=== PATIENT | female | born 2000 | race Caucasian/White ===

== ENCOUNTER 2019-07-31 17:19 | Emergency (ER) | payer OTHER ==
[~2019-07-31] VITALS: Ht 147.3 cm; Wt 43.0 kg
[2019-07-31 17:35] VITALS: BP 110/75
[2019-07-31] MEDS ORDERED: ketorolac tromethamine 15mg/ml inj. IM ONE (18:00)
[2019-07-31] MEDS ORDERED: triamcinolone acetonide 40mg/ml inj IM ONE (18:00)
== END 2019-07-31 18:27 | disposition home or self-care (01) ==
LOC: ER 17:20
DX: M54.5 Low back pain (principal); G89.29 Other chronic pain; V49.9XXA Car occupant (driver) (passenger) injured in unspecified traffic accident, initial encounter; Y93.89 Activity, other specified; Y92.89 Other specified places as the place of occurrence of the external cause; Y99.8 Other external cause status
CPT/HCPCS: 96372; 99284; J1885; J3301

== ENCOUNTER 2019-08-15 23:56 | Emergency (ER) | payer OTHER ==
[~2019-08-15] VITALS: Ht 147.3 cm; Wt 44.0 kg
[2019-08-16] MEDS ORDERED: diazepam 5mg tablet PO ONE (00:15)
[2019-08-16] MEDS ORDERED: oxyCODONE/APAP 5-325mg tablet PO ONE (00:15)
[2019-08-16] MEDS ORDERED: ketorolac trometh. 30mg/ml inj. IM ONE (00:15)
[2019-08-16] MEDS ORDERED: HYDR-3965 PO (01:00)
[2019-08-16 01:21] VITALS: BP 133/82
== END 2019-08-16 01:24 | disposition home or self-care (01) ==
LOC: ER 23:57
DX: M54.5 Low back pain (principal); M25.552 Pain in left hip; M79.605 Pain in left leg; G89.29 Other chronic pain; F17.210 Nicotine dependence, cigarettes, uncomplicated; Z79.899 Other long term (current) drug therapy
CPT/HCPCS: 96372; 99283; J1885

== ENCOUNTER 2021-01-26 17:06 | Emergency (ER) | payer MEDICAID ==
[~2021-01-26] VITALS: Ht 149.9 cm; Wt 43.2 kg
[2021-01-26 17:29] VITALS: BP 114/61
== END 2021-01-26 19:01 | disposition left against medical advice (07) ==
LOC: ER 17:07
DX: S91.312A Laceration without foreign body, left foot, initial encounter (principal); Z53.21 Procedure and treatment not carried out due to patient leaving prior to being seen by health care provider; X58.XXXA Exposure to other specified factors, initial encounter; Y93.89 Activity, other specified; Y92.89 Other specified places as the place of occurrence of the external cause; Y99.8 Other external cause status

== ENCOUNTER 2022-04-04 10:24 | Emergency (ER) | payer MEDICAID ==
[~2022-04-04] VITALS: Ht 147.3 cm; Wt 41.3 kg
[2022-04-04 11:43] VITALS: BP 104/57
[2022-04-04 12:32] LABS: BASOPHILS % (AUTO) 0.3 % (0-1); EOSINOPHILS % (AUTO) 0 % (0-6); HEMATOCRIT 44.3 % (35.0-45.0); HEMOGLOBIN 14.4 g/dl (12.0-16.0); LYMPHOCYTES # (AUTO) 0.6 X10'3 (1.1-4.8); LYMPHOCYTES % (AUTO) 3.3 % (21-51); MEAN CORPUSCULAR HEMOGLOBIN 29.4 PG (27.0-31.0); MEAN CORPUSCULAR HGB CONC 32.6 g/dL (33.0-36.5); MEAN CORPUSCULAR VOLUME 90.2 FL (78-98); MEAN PLATELET VOLUME 8.3 FL (7.4-10.4); MONOCYTES # (AUTO) 0.6 X10'3 (0-0.9); MONOCYTES % (AUTO) 3.5 % (2-12); NEUTROPHILS # (AUTO) 15.8 X10'3 (1.8-7.7); NEUTROPHILS % (AUTO) 92.9 % (42-75); PLATELET COUNT 270 X10'3 (140-440); RED BLOOD COUNT 4.91 X10'6 (4.20-5.60)
[2022-04-04 12:45] LABS: ALANINE AMINOTRANSFERASE 14 U/L (12-78); ALBUMIN 4.5 G/DL (3.4-5.0); ALBUMIN/GLOBULIN RATIO 1.2 (1.1-1.5); ALKALINE PHOSPHATASE 57 IU/L (46-116); ANION GAP 8 (8-16); ASPARTATE AMINO TRANSFERASE 21 U/L (10-37); BILIRUBIN,TOTAL 1.3 MG/DL (0.1-1.0); BLOOD UREA NITROGEN 8 MG/DL (7-18); BUN/CREATININE RATIO 11.8 (6.6-38.0); CALCIUM 9.4 MG/DL (8.5-10.1); CHLORIDE 105 MMOL/L (99-107); CREATININE 0.68 MG/DL (0.40-0.90); GLUCOSE 92 MG/DL (70-104); LIPASE 102 U/L (73-393); POTASSIUM 3.7 MMOL/L (3.5-5.1); SODIUM 138 MMOL/L (135-145); TOTAL CARBON DIOXIDE 25.1 MMOL/L (24-32); TOTAL PROTEIN 8.4 G/DL (6.4-8.2); eGFR > 90 ML/MIN
== END 2022-04-04 16:32 | disposition left against medical advice (07) ==
LOC: ER 10:25
DX: E86.0 Dehydration (principal); R11.10 Vomiting, unspecified; Z53.21 Procedure and treatment not carried out due to patient leaving prior to being seen by health care provider
CPT/HCPCS: 36415; 80053; 83690; 85025